=== PATIENT | female | born 1985 | race Caucasian/White ===

== ENCOUNTER 2018-11-20 20:26 | Emergency (ER) | payer MEDICAID ==
[~2018-11-20] VITALS: Ht 160 cm; Wt 72.7 kg
[2018-11-20 20:42] VITALS: BP 116/81
== END 2018-11-20 21:11 | disposition home or self-care (01) ==
LOC: ER 20:27
DX: Z02.89 Encounter for other administrative examinations (principal); F15.90 Other stimulant use, unspecified, uncomplicated
CPT/HCPCS: 99281

== ENCOUNTER 2018-11-27 14:44 | Emergency (ER) | payer MEDICAID ==
[~2018-11-27] VITALS: Ht 160 cm; Wt 69.8 kg
[2018-11-27 14:46] VITALS: BP 104/78
--- NOTE | 2018-11-27 15:43 | NUR ---
PATIENT SEEN IN TRIAGE PER DR. GUZMAN AND EVALUATED FOR MEDICAL CLEARANCE.
== END 2018-11-27 15:44 | disposition home or self-care (01) ==
LOC: ER 14:45
DX: F15.90 Other stimulant use, unspecified, uncomplicated (principal); Z98.890 Other specified postprocedural states
CPT/HCPCS: 99281

== ENCOUNTER 2019-01-19 10:46 | Emergency (ER) | payer MEDICAID ==
[~2019-01-19] VITALS: Ht 160 cm; Wt 75.6 kg
[2019-01-19] MEDS ORDERED: AMOX500C2 PO (11:14)
[2019-01-19] MEDS ORDERED: ketorolac trometh inj. 60 MG/2 ML VIAL IM ONE (11:15)
[2019-01-19] MEDS ORDERED: amoxicillin 250mg capsule PO ONE (11:15)
[2019-01-19 11:22] VITALS: BP 122/75
== END 2019-01-19 11:27 | disposition home or self-care (01) ==
LOC: ER 10:46
DX: K02.9 Dental caries, unspecified (principal); G89.18 Other acute postprocedural pain; F15.90 Other stimulant use, unspecified, uncomplicated; Z88.0 Allergy status to penicillin; Z79.2 Long term (current) use of antibiotics
CPT/HCPCS: 96372; 99283; J1885

== ENCOUNTER 2019-11-27 21:10 | Emergency (ER) | payer MEDICAID ==
[~2019-11-27] VITALS: Ht 160 cm; Wt 75.0 kg
[2019-11-27] MEDS ORDERED: meclizine 12.5mg tablet PO ONE (22:45)
[2019-11-27] MEDS ORDERED: MECL-159 PO (22:47)
[2019-11-27 22:59] VITALS: BP 118/64
== END 2019-11-27 23:01 | disposition home or self-care (01) ==
LOC: ER 21:11
DX: H81.12 Benign paroxysmal vertigo, left ear (principal); Z98.890 Other specified postprocedural states; Z79.899 Other long term (current) drug therapy
CPT/HCPCS: 93005; 99283; J8597

== ENCOUNTER 2022-02-11 11:25 | Emergency (ER) | payer MEDICAID ==
[~2022-02-11] VITALS: Ht 160 cm; Wt 84.0 kg
[~2022-02-11 11:25] MED LIST: MECL-159 PO
[2022-02-11 12:06] VITALS: BP 111/75
== END 2022-02-11 15:04 | disposition home or self-care (01) ==
LOC: ER 11:25
DX: J06.9 Acute upper respiratory infection, unspecified (principal); F15.10 Other stimulant abuse, uncomplicated; E03.9 Hypothyroidism, unspecified; Z79.899 Other long term (current) drug therapy
CPT/HCPCS: 99282